=== PATIENT | female | born 1985 | race Caucasian/White ===

== ENCOUNTER 2016-07-06 16:15 | Emergency (ER) | payer MEDICAID, OTHER ==
[2016-07-06 16:38] VITALS: BP 162/91
[2016-07-06] MEDS ORDERED: Alum Hydrox/Mag Hydrox/Simeth 30 ML, Lidocaine 2% 15 ML PO ONE ×2 (16:57)
[2016-07-06] MEDS ORDERED: Sodium Chloride 0.9% 1,000 ML IV SCH (17:00)
--- NOTE | 2016-07-06 17:03 | EDM.PDOC ---
ED HPI GENERAL MEDICAL PROBLEM - General Chief Complaint: Abdominal Pain Stated Complaint: RIGHT SIDE ABDOMINAL PAIN Time Seen by Provider: 07/06/16 16:47 Source of Information: Reports: Patient History Limitations: Reports: No Limitations - History of Present Illness INITIAL COMMENTS - FREE TEXT/NARRATIVE: Patient is a 31-year-old female who presents to ED complaining of right-sided upper quadrant abdominal pain. Patient states this started immediately after eating [employer]. Pain is described as sharp crampy sensation worse with palpation. She does complain of some acid reflux as well. She does have a history of acid reflux and notes no increase with current symptoms. Pain is described as moderate intensity with no radiation. She has felt nauseated and notes no episodes of emesis. Denies any fever/chills, diarrhea, or dysuria. Patient states this morning had a BM described as soft, formed, and no blood present. She denies increased flatulence. She denies any previous history of current symptoms. 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: Other (see below) (none stated) Right Abdominal Pain Score (Numeric/FACES): 7 - Related Data Allergies Allergy/AdvReac Type Severity Reaction Status Date / Time acetaminophen [From Vicodin] Allergy Rash Verified 07/06/16 16:34 fluconazole [From Diflucan] Allergy Hives Verified 07/06/16 16:34 hydrocodone bitartrate Allergy Rash Verified 07/06/16 16:34 [From Vicodin] hydromorphone HCl Allergy Other Verified 07/06/16 16:34 [From Dilaudid] Home Meds: Home Meds Citalopram [Celexa] 20 mg PO DAILY 07/06/16 [History] hydrOXYzine HCl [Atarax] 25 mg PO Q8HR PRN 07/06/16 [History] Past Medical History Psychiatric History: Reports: Anxiety, Depression - Infectious Disease History Infectious Disease History: Reports: Chicken Pox - Past Surgical History GI Surgical History: Reports: Appendectomy Female Surgical History: Reports: Tubal Ligation Social & Family History - Tobacco Use Smoking Status *Q: Current Every Day Smoker Years of Tobacco use: 10 Packs/Tins Daily: 0.1 Second Hand Smoke Exposure: Yes - Caffeine Use Caffeine Use: Reports: Coffee, Energy Drinks, Soda - Recreational Drug Use Recreational Drug Use: No Drug Use in Last 12 Months: No ED ROS GENERAL - Review of Systems Review Of Systems: See Below Constitutional: Reports: Decreased Appetite. Denies: Fever, Chills Respiratory: Denies: Shortness of Breath, Cough, Sputum Cardiovascular: Denies: Chest Pain, Dyspnea on Exertion, Palpitations GI/Abdominal: Reports: Abdominal Pain, Decreased Appetite, Nausea. Denies: Black Stool, Bloody Stool, Constipation, Diarrhea, Hematemesis, Melena, Vomiting : Denies: Dysuria, Flank Pain Musculoskeletal: Denies: Back Pain Neurological: Denies: Dizziness, Headache ED EXAM, GI/ABD - Physical Exam Exam: See Below Exam Limited By: No Limitations General Appearance: Alert, WD/WN, Mild Distress Ears: Hearing Grossly Normal Nose: Normal Inspection Throat/Mouth: Normal Voice, No Airway Compromise Neck: Normal Inspection, Supple Respiratory/Chest: No Respiratory Distress, Lungs Clear, Normal Breath Sounds Cardiovascular: Normal Peripheral Pulses, Regular Rate, Rhythm, No Murmur GI/Abdominal: Normal Bowel Sounds, No Distention, Boswell's Sign. No: McBurney' s Sign (history of history of appendectomy) Back Exam: Normal Inspection. No: CVA Tenderness (L), CVA Tenderness (R) Extremities: Non-Tender, No Pedal Edema Neurological: Alert, Oriented, CN II-XII Intact, Normal Cognition Psychiatric: Normal Affect, Normal Mood Skin Exam: Warm, Dry, Intact, Normal Color Course - Vital Signs Last Recorded V/S: Last Vital Signs Temp 96.7 F 07/06/16 16:36 Pulse 78 07/06/16 16:36 Resp BP 162/91 H 07/06/16 16:36 Pulse Ox 96 07/06/16 16:36 - Orders/Labs/Meds Labs: Laboratory Tests 07/06/16 07/06/16 07/06/16 Range/Units 17:20 17:20 17:20 WBC 11.13 H (3.98-10.04) K/mm3 RBC 4.48 (3.98-5.22) M/mm3 Hgb 13.4 (11.2-15.7) gm/L Hct 38.4 (34.1-44.9) % MCV 85.7 (79.4-94.8) fl MCH 29.9 (25.6-32.2) pg MCHC 34.9 (32.2-35.5) g/dl RDW Std Deviation 37.7 (36.4-46.3) fL Plt Count 389 H (182-369) K/mm3 MPV 9.5 (9.4-12.3) fl Neut % (Auto) 68.7 (34.0-71.1) % Lymph % (Auto) 20.8 (19.3-51.7) % [place] % (Auto) 8.2 (4.7-12.5) % Eos % (Auto) 1.9 (0.7-5.8) Baso % (Auto) 0.2 (0.1-1.2) % Neut # (Auto) 7.65 H (1.56-6.13) K/mm3 Lymph # (Auto) 2.32 (1.18-3.74) K/mm3 [place] # (Auto) 0.91 H (0.24-0.36) K/mm3 Eos # (Auto) 0.21 (0.04-0.36) K/mm3 Baso # (Auto) 0.02 (0.01-0.08) K/mm3 Sodium 143 (136-145) mEq/L Potassium 3.7 (3.5-5.1) mEq/L Chloride 106 (98-107) mEq/L Carbon Dioxide 27 (21-32) mEq/L Anion Gap 13.7 (5-15) BUN 10 (7-18) mg/dL Creatinine 1.0 (0.55-1.02) mg/dL Est Cr Clr Drug Dosing TNP Estimated GFR (MDRD) > 60 (>60) mL/min BUN/Creatinine Ratio 10.0 L (14-18) Glucose 108 H (74-106) mg/dL Calcium 8.9 (8.5-10.1) mg/dL Total Bilirubin 0.2 (0.2-1.0) mg/dL AST 17 (15-37) U/L ALT 32 (14-59) U/L Alkaline Phosphatase 71 (46-116) U/L C-Reactive Protein < 0.2 (<1.0) mg/dL Total Protein 7.4 (6.4-8.2) g/dl Albumin 3.4 (3.4-5.0) g/dl Globulin 4.0 gm/dL Albumin/Globulin Ratio 0.9 L (1-2) Lipase 111 (73-393) U/L HCG, Qual Negative (NEGATIVE) Urine Color (Yellow) Urine Appearance (Clear) Urine pH (5.0-8.0) Ur Specific [place] (1.005-1.030) Urine Protein (Negative) Urine Glucose (UA) (Negative) Urine Ketones (Negative) Urine Occult Blood (Negative) Urine Nitrite (Negative) Urine Bilirubin (Negative) Urine Urobilinogen (0.2-1.0) Ur Leukocyte Esterase (Negative) Urine RBC (0-5) /hpf Urine WBC (0-5) /hpf Ur Epithelial Cells Ur Squamous Epith Cells (0-5) /hpf Urine Bacteria (FEW) /hpf Urine Mucus (FEW) /hpf 07/06/16 Range/Units 18:20 WBC (3.98-10.04) K/mm3 RBC (3.98-5.22) M/mm3 Hgb (11.2-15.7) gm/L Hct (34.1-44.9) % MCV (79.4-94.8) fl MCH (25.6-32.2) pg MCHC (32.2-35.5) g/dl RDW Std Deviation (36.4-46.3) fL Plt Count (182-369) K/mm3 MPV (9.4-12.3) fl Neut % (Auto) (34.0-71.1) % Lymph % (Auto) (19.3-51.7) % [place] % (Auto) (4.7-12.5) % Eos % (Auto) (0.7-5.8) Baso % (Auto) (0.1-1.2) % Neut # (Auto) (1.56-6.13) K/mm3 Lymph # (Auto) (1.18-3.74) K/mm3 [place] # (Auto) (0.24-0.36) K/mm3 Eos # (Auto) (0.04-0.36) K/mm3 Baso # (Auto) (0.01-0.08) K/mm3 Sodium (136-145) mEq/L Potassium (3.5-5.1) mEq/L Chloride (98-107) mEq/L Carbon Dioxide (21-32) mEq/L Anion Gap (5-15) BUN (7-18) mg/dL Creatinine (0.55-1.02) mg/dL Est Cr Clr Drug Dosing Estimated GFR (MDRD) (>60) mL/min BUN/Creatinine Ratio (14-18) Glucose (74-106) mg/dL Calcium (8.5-10.1) mg/dL Total Bilirubin (0.2-1.0) mg/dL AST (15-37) U/L ALT (14-59) U/L Alkaline Phosphatase (46-116) U/L C-Reactive Protein (<1.0) mg/dL Total Protein (6.4-8.2) g/dl Albumin (3.4-5.0) g/dl Globulin gm/dL Albumin/Globulin Ratio (1-2) Lipase (73-393) U/L HCG, Qual (NEGATIVE) Urine Color Light yellow (Yellow) Urine Appearance Clear (Clear) Urine pH 7.0 (5.0-8.0) Ur Specific [place] 1.015 (1.005-1.030) Urine Protein Negative (Negative) Urine Glucose (UA) Negative (Negative) Urine Ketones Negative (Negative) Urine Occult Blood Negative (Negative) Urine Nitrite Negative (Negative) Urine Bilirubin Negative (Negative) Urine Urobilinogen 0.2 (0.2-1.0) Ur Leukocyte Esterase Negative (Negative) Urine RBC Not seen (0-5) /hpf Urine WBC 0-5 (0-5) /hpf Ur Epithelial Cells Not Reportable Ur Squamous Epith Cells 30-40 H (0-5) /hpf Urine Bacteria Rare (FEW) /hpf Urine Mucus Not seen (FEW) /hpf Meds: Medications Discontinued Medications Generic Name Dose Route Start Last Admin Trade Name Freq PRN Reason Stop Dose Admin Al Hydroxide/Mg Hydroxide 30 0 ml 07/06/16 16:57 07/06/16 17:33 ml/ Lidocaine HCl 15 ml PO 07/06/16 16:58 45 ml ONETIME ONE Administration Fentanyl 75 mcg 07/06/16 18:49 07/06/16 18:55 Sublimaze IVPUSH 07/06/16 18:50 75 mcg ONETIME ONE Administration Sodium Chloride 1,000 mls @ 250 mls/hr 07/06/16 17:00 07/06/16 17:32 Normal Saline IV 250 mls/hr ASDIRECTED MAGALI Administration Iopamidol 125 ml 07/06/16 20:57 07/06/16 21:19 Isovue-300 (61%) IVPUSH 07/06/16 20:58 125 ml ONETIME ONE Administration Ondansetron HCl 4 mg 07/06/16 19:10 07/06/16 19:13 Zofran IVPUSH 07/06/16 19:11 4 mg ONETIME ONE Administration Sodium Chloride 10 ml 07/06/16 16:57 07/06/16 21:19 Saline Flush FLUSH 10 ml ASDIRECTED PRN Administration Keep Vein Open Sodium Chloride 10 ml 07/06/16 20:57 Saline Flush FLUSH 07/06/16 20:58 ONETIME ONE - Re-Assessments/Exams Free Text/Narrative Re-Assessment/Exam: Ordered a peripheral IV with normal saline to 250 mL per hour, Zofran 4 mg IVP , and a GI cocktail. Initial labs and studies include CBC, chem 14, CRP, lipase , UA, and ECG. Labs reviewed: White blood cell count 11.13, chem 14 within normal limits, lipase 111, hCG negative, UA negative for infection. CRP WNL. 07/06/16 18:50 Patient is having excruciating pain to the RUQ 10/10. Ordered fentanyl 75mcq/kg. Patient is allergic to hydromorphone subsequently morphine. Patient vomiting ordered zofran 4mg IVP. 07/06/16 19:03 Ordered limited abdominal ultrasound. 07/06/16 20:39 Abdominal ultrasound impression: Slightly fatty observation within the liver. No additional abnormality identified on right upper quadrant abdominal ultrasound exam. Ordered CT abdomen and pelvis with IV contrast only. CT abdomen/pelvis: No acute abnormalities noted. Will discharge patient home with instructions. 07/06/16 22:28 Patient states she cannot take T3, hydrocodone, and hydromorphone. Patient has a allergy and develops a rash. She wants to try percocet tabs. She has no known allergy to oxycodone. Departure - Departure Time of Disposition: 22:11 Disposition: Home, Self-Care 01 Condition: good Clinical Impression: RUQ abdominal pain, Nausea, Biliary colic - Discharge Information Instructions: Abdominal Pain, Adult, [id number], Nausea and Vomiting, Adult, [id number] Referrals: Chiquita Escobedo, [employer] SALESPERSON [Primary Care Provider] - Forms: ED Department Discharge Additional Instructions: Outpatient HIDA Scan has been ordered. They will call with appt. time. For nausea take zofran 4mg ODT SL every 6 hours as needed. For pain take tylenol 650mg every 6 hours. Refrain from ibuprofen. Take prilosec 20mg every a.m. 1/2 hour prior to eating or drinking in the a.m. Can also utilize maalox prn following manufactures instructions for dosing. Stick with a liquid diet for the next 24 hrs, low residue for 48 hours, and advance as tolerated to normal diet. Stay away from fatty foods. Followup with PCP Tuesday for reevaluation and results HIDA scan. Return to the E.D. for any new or worsening symptoms. Take the percocet tabs as directed.No driving this evening nor while taking narcotics. If you develop rash take benadryl 50mg PO. If you develop anaphylatic reaction call 911 to be transported to E.D.
[2016-07-06] MEDS: Sodium Chloride 0.9% 10 ML Syringe FLUSH PRN ×2 (17:20→21:19)
[2016-07-06] MEDS ORDERED: fentaNYL 100 MCG/2 ML SDV IVPUSH ONE (18:49)
[2016-07-06] MEDS ORDERED: Ondansetron 4 MG/2 ML SDV IVPUSH ONE (19:10)
--- NOTE | 2016-07-06 20:27 | US ---
Limited abdominal ultrasound: Multiple real-time images were obtained of the upper right abdomen. Comparison: Previous right upper quadrant abdominal ultrasound of 10/12/14 is available. Technologist's note: Limited exam due to bowel gas and labored breathing Liver is slightly echogenic. Minimal fatty infiltration is possible. No focal abnormality is identified within the liver. Gallbladder shows no gallstones. No gallbladder wall thickening or biliary duct dilatation is seen. Right kidney shows no hydronephrosis or mass. Right kidney has a length of 10.9 cm. Pancreas is mostly obscured from bowel gas. Visualized portions of the pancreas are within normal limits. Inferior vena cava is patent. Impression: 1. Slight fatty infiltration within the liver. 2. No additional abnormality identified on right upper quadrant abdominal ultrasound exam. Diagnostic code #2
[2016-07-06] MEDS ORDERED: Sodium Chloride 0.9% 10 ML Syringe FLUSH ONE (20:57)
[2016-07-06] MEDS ORDERED: Iopamidol 612 MG/ML 150 ML Bottle IVPUSH ONE (20:57)
--- NOTE | 2016-07-07 11:29 | CT ---
CT abdomen and pelvis Technique: Multiple axial sections were obtained from above the dome of the diaphragm inferiorly through the pubic symphysis. Intravenous contrast was utilized. No oral contrast was given which limits evaluation of bowel and processes around the bowel. Comparison: Previous right upper quadrant abdominal ultrasound performed on the same day. Previous CT abdomen and pelvis exam of 10/14/14 is also available. Findings: Visualized lung bases show nothing acute. Liver shows no focal parenchymal abnormality. Spleen appears within normal limits. Soft tissue nodule medial to the spleen is compatible with accessory splenic tissue. Cyst noted within the right kidney which is stable from prior exam measuring about 1.2 cm in size. Kidneys are otherwise unremarkable. Adrenal glands show no nodule. Pancreas is within normal limits. Aorta shows no aneurysmal dilatation. No retroperitoneal adenopathy or mesenteric abnormalities are seen. Appendix is not definitely visualized. No bowel dilatation is seen. No pelvic mass or adenopathy is seen. No free fluid or inflammatory change is seen. Delayed images show contrast within the bladder. Bone window settings were reviewed which appear within normal limits for the patient's age. Impression: 1. Incidental findings. Nothing acute is identified on CT study of the abdomen and pelvis. Diagnostic code #2 Agree with preliminary report issued by [facility] ([facility] report dictated on 07/06/16, 10:48 PM Central Time)
== END 2016-07-06 22:30 | disposition home or self-care (01) ==
LOC: JD.ED 16:15
DX: K80.50 Calculus of bile duct without cholangitis or cholecystitis without obstruction (principal); R10.11 Right upper quadrant pain; R11.0 Nausea; F32.9 Major depressive disorder, single episode, unspecified; F17.210 Nicotine dependence, cigarettes, uncomplicated; Z90.49 Acquired absence of other specified parts of digestive tract; Z88.5 Allergy status to narcotic agent; Z88.8 Allergy status to other drugs, medicaments and biological substances; Z88.6 Allergy status to analgesic agent; Z79.899 Other long term (current) drug therapy; Z98.51 Tubal ligation status
CPT/HCPCS: 36415; 74177; 76705; 80053; 81001; 83690; 84703; 85025; 86140; 96361; 96374; 96375; 99284; A9270; J2405; J3010; J7040; J7050; Q9967

== ENCOUNTER 2016-08-26 03:10 | Emergency (ER) | payer SELFPAY ==
[2016-08-26 03:23] VITALS: BP 147/101
[2016-08-26] MEDS ORDERED: Benztropine 1 MG Tab PO STA (03:48)
[2016-08-26] MEDS ORDERED: Sodium Chloride 0.9% 1,000 ML IV ONE (03:48)
[2016-08-26] MEDS ORDERED: Haloperidol Lactate 5 MG/ML SDV IM ONE (03:48)
[2016-08-26] MEDS ORDERED: Ondansetron 4 MG/2 ML SDV IVPUSH ONE (03:48)
--- NOTE | 2016-08-26 04:21 | EDM.PDOC ---
ED HPI GENERAL MEDICAL PROBLEM - General Chief Complaint: Headache Stated Complaint: BAD HEADACHE Time Seen by Provider: 08/26/16 03:32 Source of Information: Reports: Patient, RN Notes Reviewed, Significant Other ( Fiance) History Limitations: Reports: No Limitations - History of Present Illness INITIAL COMMENTS - FREE TEXT/NARRATIVE: The patient states that she developed a headache felt on the top right of her head around 18:00 last night. It is stabbing in character, made worse when she coughs. She states that she has had nausea and vomiting. She states that she has had photophobia, but denies phonophobia. No visual changes. No neurologic symptoms, such as tingling, numbness, or weakness. She states that she has "migraine" headaches, that she describes simply as bad headaches, about every other day, but that she has not had a headache like this in the past. She has not been evaluated by a Neurologist, and is not prescribed either migraine prophylactic or migraine abortive medications. She states that she took [id number] "headache pain reliever" and Motrin, without relief. She states that she had a head injury as a teenager and was told that she would have migraines going forward. The last imaging study of the patient's brain was a CT of the head on 08/31/2014 , which was normal. The patient's PCP is Aleah Escobedo. Headache Pain Score (Numeric/FACES): 10 - Related Data Allergies Allergy/AdvReac Type Severity Reaction Status Date / Time acetaminophen [From Vicodin] Allergy Rash Verified 08/26/16 03:24 fluconazole [From Diflucan] Allergy Hives Verified 08/26/16 03:24 hydrocodone bitartrate Allergy Rash Verified 08/26/16 03:24 [From Vicodin] hydromorphone HCl Allergy Other Verified 08/26/16 03:24 [From Dilaudid] Home Meds: Home Meds Citalopram [Celexa] 20 mg PO DAILY 07/06/16 [History] hydrOXYzine HCl [Atarax] 25 mg PO Q8HR PRN 07/06/16 [History] Past Medical History HEENT History: Reports: Allergic Rhinitis Respiratory History: Reports: Asthma Genitourinary History: Reports: Renal Calculus DEVIL DOG History: Reports: Neurological History: Reports: Brain Injury, Migraines Psychiatric History: Reports: Anxiety, Depression - Infectious Disease History Infectious Disease History: Reports: Chicken Pox - Past Surgical History GI Surgical History: Reports: Appendectomy Female Surgical History: Reports: Tubal Ligation Neurological Surgical History: Reports: Other (See Below) (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?) Social & Family History - Tobacco Use Smoking Status *Q: Former Smoker Years of Tobacco use: 10 Packs/Tins Daily: 0.1 Second Hand Smoke Exposure: Yes - Caffeine Use Caffeine Use: Reports: None - Alcohol Use Alcohol Use History: No - Recreational Drug Use Recreational Drug Use: No - Living Situation & Occupation Living situation: Reports: Single, with Significant Other (Fiance) Occupation: Unemployed ED ROS GENERAL - Review of Systems Review Of Systems: See Below Constitutional: Reports: Fever (subjective) HEENT: Reports: No Symptoms Respiratory: Reports: Cough (x 1 week) Cardiovascular: Reports: No Symptoms Endocrine: Reports: No Symptoms GI/Abdominal: Reports: No Symptoms : Reports: No Symptoms Musculoskeletal: Reports: No Symptoms Skin: Reports: No Symptoms Neurological: Reports: No Symptoms Psychiatric: Reports: No Symptoms Hematologic/Lymphatic: Reports: No Symptoms Immunologic: Reports: No Symptoms - Physical Exam Exam: See Below Exam Limited By: No Limitations General Appearance: Alert, WD/WN, Mild Distress (Appears uncomfortable) Eye Exam: Bilateral Eye: EOMI, Normal Inspection, PERRL Ears: Normal External Exam, Hearing Grossly Normal Nose: Normal Inspection, No Blood Throat/Mouth: Normal Inspection, Normal Lips, Normal Voice, No Airway Compromise Head Exam: Atraumatic, Normocephalic Neck: Normal Inspection, Full Range of Motion Respiratory/Chest: No Respiratory Distress, Lungs Clear, Normal Breath Sounds, No Accessory Muscle Use Cardiovascular: Normal Peripheral Pulses, Regular Rate, Rhythm, No Gallop, No JVD, No Murmur, No Rub GI/Abdominal: Normal Bowel Sounds, Soft, No Organomegaly, No Distention, No Abnormal Bruit, No Mass, Other (Obese) (Female) Exam: Deferred Rectal (Female) Exam: Deferred Neuro Exam (Abbreviated): Alert, Oriented, CN II-XII Intact, Normal Cognition, No Motor/Sensory Deficits Back Exam: Normal Inspection, Full Range of Motion, NT Extremities: Normal Inspection, Normal Range of Motion, No Pedal Edema, Normal Capillary Refill Psychiatric: Normal Affect Skin Exam: Warm, Dry, Intact, Normal Color, No Rash Course - Vital Signs Last Recorded V/S: Last Vital Signs Temp 37.2 C 08/26/16 03:20 Pulse 110 H 08/26/16 03:20 Resp 20 08/26/16 03:20 BP 147/101 H 08/26/16 03:20 Pulse Ox 98 08/26/16 03:20 - Orders/Labs/Meds Orders: Active Orders 24 hr Category Date Time Status Head wo Cont [CT] Stat Exams 08/26/16 03:48 Taken Meds: Medications Discontinued Medications Generic Name Dose Route Start Last Admin Trade Name Clement PRN Reason Stop Dose Admin Benztropine Mesylate 1 mg 08/26/16 03:48 08/26/16 04:09 Cogentin PO 08/26/16 03:49 1 mg ONETIME STA Administration Haloperidol Lactate 5 mg 08/26/16 03:48 08/26/16 04:02 Haldol IM 08/26/16 03:49 5 mg ONETIME ONE Administration Sodium Chloride 1,000 mls @ 999 mls/hr 08/26/16 03:48 08/26/16 04:00 Normal Saline IV 08/26/16 04:48 999 mls/hr ONETIME ONE Administration Ondansetron HCl 4 mg 08/26/16 03:48 08/26/16 04:00 Zofran IVPUSH 08/26/16 03:49 4 mg ONETIME ONE Administration - Re-Assessments/Exams Free Text/Narrative Re-Assessment/Exam: 08/26/16 04:55 CT of the head without contrast is read by [facility] as "No acute findings." 08/26/16 04:58 The patient states that her headache, following Haldol, is really no better. This indicates that the patient's headache is not migrainous in etiology. Given her description, it is most likely a tension headache. I will treat with Norflex and Fioricet, and discharge the patient home. Departure - Departure Time of Disposition: 04:59 Disposition: Home, Self-Care 01 Condition: Fair Clinical Impression: Tension type headache - Discharge Information Referrals: Chiquita Escobedo, OUTBOARD TECHNICIAN [Primary Care Provider] - Forms: ED Department Discharge Additional Instructions: You were seen in the emergency room for a headache felt on the top right of her head. Workup in the ER included a CT scan of her head, which was normal. You were treated for a migraine with IM Haldol, without significant relief. This indicates that your headache was not a migraine. Based on your description, your headache is MOST LIKELY a tension-type headache. You have been treated with Norflex, a muscle relaxant, and the tension headache medicine Fioricet. We recommend you get plenty of rest in a dark, quiet place. Stay adequately hydrated. Follow-up with your PCP, Aleah Escobedo, as needed. If any other problems, please do not hesitate to return to the ER. - My Orders Last 24 Hours: My Active Orders 08/26/16 03:48 Head wo Cont [CT] Stat - Assessment/Plan Last 24 Hours: My Active Orders 08/26/16 03:48 Head wo Cont [CT] Stat
[2016-08-26] MEDS ORDERED: Orphenadrine 100 MG Tab.ER PO STA (04:59)
[2016-08-26] MEDS ORDERED: Acetaminophen/Butalbital/Caffeine 325-50-40 MG Tab PO ONE (05:00)
--- NOTE | 2016-08-29 13:45 | CT ---
Previous report shows no diagnostic code which follows: Diagnostic code #1 --- Addendum1 above dictated on [09/03/2016 18:04] by [Robert Sanz Hilton J.] --- --- Addendum1 above signed on [09/03/2016 18:06] by [Robert Sazn Hilton J.] --- --- Original report below dictated on [08/29/2016 13:20] by [Robert Sanz Hilton J.] --- --- Original report below signed on [08/29/2016 13:42] by [Robert Sanz Hilton J.] --- Head CT Technique: Multiple axial sections through the brain were obtained. Intravenous contrast was not utilized. Comparison: Previous head CT of 08/31/14 is available. Findings: Ventricles along with basal cisterns and sulci over the convexities are within normal limits for the patient's age. No abnormal parenchymal densities are seen. No evidence of intracranial hemorrhage. No midline shift or mass effect is seen. Bone window settings were reviewed which show no discrete calvarial abnormality. Visualized sinuses are clear. Impression: 1. No acute intracranial abnormality is seen. No significant interval change is seen from prior head CT. I agree with preliminary report issued by [facility] ([facility] report finalized on 08/26/16, 5:39 AM Central Time) --- Addendum1 signed ---
== END 2016-08-26 05:27 | disposition home or self-care (01) ==
LOC: JD.ED 03:10
DX: G44.209 Tension-type headache, unspecified, not intractable (principal); J45.909 Unspecified asthma, uncomplicated; F41.9 Anxiety disorder, unspecified; F32.9 Major depressive disorder, single episode, unspecified; Z90.49 Acquired absence of other specified parts of digestive tract; Z98.51 Tubal ligation status; Z87.442 Personal history of urinary calculi; Z79.899 Other long term (current) drug therapy; Z88.5 Allergy status to narcotic agent; Z88.8 Allergy status to other drugs, medicaments and biological substances; Z87.891 Personal history of nicotine dependence
CPT/HCPCS: 70450; 96361; 96372; 96374; 99284; A9270; J1630; J2405; J7040

== ENCOUNTER 2017-08-03 09:04 | Emergency (ER) | payer SELFPAY ==
[2017-08-03] MEDS ORDERED: Ondansetron 4 MG/2 ML SDV IVPUSH ONE (09:47)
[2017-08-03] MEDS ORDERED: Ketorolac 15 MG/ML SDV IVPUSH ONE (09:50)
[2017-08-03] MEDS ORDERED: Sodium Chloride 0.9% 1,000 ML IV SCH ×2 (10:00→11:15)
--- NOTE | 2017-08-03 10:28 | EDM.PDOC ---
<Digna Pinedo - Last Filed: 08/03/17 10:33> ED HPI GENERAL MEDICAL PROBLEM - General Chief Complaint: Abdominal Pain Stated Complaint: R SIDE ABD PAIN Time Seen by Provider: 08/03/17 09:40 Source of Information: Reports: Patient History Limitations: Reports: No Limitations - History of Present Illness INITIAL COMMENTS - FREE TEXT/NARRATIVE: 32 yo female presents for RUQ pain with associated nausea, vomiting and diarrhea for the past 6 hours. She reports approximately 0400 hours she woke up with the pain and nausea. She has vomited twice and the pain has not improved. She reports a sharp, stabbing pain in the upper right quadrant that has been there constantly but has been waxing and waning. She said she ate burgers at a friend's home for dinner but no one else became ill. She reports feeling well when she went to bed. She has not had any blood in the stool and denies abdominal cramps. LMP approx 1 month ago, h/o tubal ligation. She has a history of biliary colic. She has had an appendectomy. She believes she has had an upset stomach recently secondary to increased stress for the past few weeks, but the pain today is very different. She denies fever, chills, night sweats. 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: NSAIDS Right Upper Abdominal Pain Score (Numeric/FACES): 7 - Related Data Allergies Allergy/AdvReac Type Severity Reaction Status Date / Time acetaminophen [From Vicodin] Allergy Rash Verified 08/03/17 09:22 fluconazole [From Diflucan] Allergy Hives Verified 08/03/17 09:22 hydrocodone bitartrate Allergy Rash Verified 08/03/17 09:22 [From Vicodin] hydromorphone HCl Allergy Other Verified 08/03/17 09:22 [From Dilaudid] Home Meds: Home Meds Citalopram [Celexa] 20 mg PO DAILY 07/06/16 [History] hydrOXYzine HCl [Atarax] 25 mg PO Q8HR PRN 07/06/16 [History] Ondansetron [Zofran ODT] 4 mg PO Q6H PRN #7 tab.dis 08/03/17 [Rx] Past Medical History HEENT History: Reports: Allergic Rhinitis Respiratory History: Reports: Asthma Genitourinary History: Reports: Renal Calculus 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: Neurological History: Reports: Brain Injury, Migraines Psychiatric History: Reports: Anxiety, Depression - Infectious Disease History Infectious Disease History: Reports: Chicken Pox - Past Surgical History GI Surgical History: Reports: Appendectomy Female Surgical History: Reports: Tubal Ligation Neurological Surgical History: Reports: Other (See Below) Social & Family History - Family History Family Medical History: Noncontributory - Tobacco Use Smoking Status *Q: Current Every Day Smoker Years of Tobacco use: 3 Packs/Tins Daily: 0.4 - Caffeine Use Caffeine Use: Reports: Soda Other Caffeine Use: daily - Recreational Drug Use Recreational Drug Use: No - Living Situation & Occupation Living situation: Reports: Single, with Significant Other (Fiance) Occupation: Unemployed ED ROS GENERAL - Review of Systems Review Of Systems: See Below Constitutional: Reports: No Symptoms. Denies: Fever, Chills, Malaise, Weakness HEENT: Reports: No Symptoms Respiratory: Reports: No Symptoms. Denies: Shortness of Breath, Wheezing, Cough Cardiovascular: Reports: No Symptoms. Denies: Chest Pain, Edema Endocrine: Reports: No Symptoms GI/Abdominal: Reports: Abdominal Pain, Diarrhea (watery), Nausea, Vomiting. Denies: Bloody Stool, Constipation : Reports: No Symptoms. Denies: Dysuria, Frequency, Urgency Musculoskeletal: Reports: Back Pain (mild low back, bilaterally) Skin: Reports: No Symptoms Neurological: Reports: No Symptoms, Headache, Tingling. Denies: Dizziness, Numbness Psychiatric: Reports: No Symptoms Hematologic/Lymphatic: Reports: No Symptoms Immunologic: Reports: No Symptoms ED EXAM, GI/ABD - Physical Exam Exam: See Below Exam Limited By: No Limitations General Appearance: Alert, WD/WN, Mild Distress (appears uncomfortable) Ears: Hearing Grossly Normal Throat/Mouth: Normal Inspection, Normal Lips Head: Atraumatic, Normocephalic Neck: Normal Inspection, Supple, Non-Tender, Full Range of Motion. No: Lymphadenopathy (L), Lymphadenopathy (R) Respiratory/Chest: No Respiratory Distress, Lungs Clear, Normal Breath Sounds, No Accessory Muscle Use Cardiovascular: Normal Peripheral Pulses, Regular Rate, Rhythm, No Edema, No Murmur, No Rub GI/Abdominal Exam: Normal Bowel Sounds, Soft, No Distention, Tender (RUQ and suprapubic region), Other (+ murphys sign). No: Rebound Back Exam: Normal Inspection, Paraspinal Tenderness (mild bilaterally). No: CVA Tenderness (L), CVA Tenderness (R) Extremities: Normal Inspection, Normal Range of Motion Neurological: Alert, Oriented, Normal Cognition, No Motor/Sensory Deficits Psychiatric: Normal Affect, Normal Mood Skin Exam: Warm, Dry, Intact, Normal Color, No Rash Course - Vital Signs Last Recorded V/S: Last Vital Signs Temp 98.5 F 08/03/17 15:03 Pulse 79 08/03/17 15:03 Resp 18 08/03/17 15:03 BP 126/88 08/03/17 15:03 Pulse Ox 98 08/03/17 15:03 - Orders/Labs/Meds Orders: Active Orders 24 hr Category Date Time Status Abdomen 2V AP Flat Upright [CR] Stat Exams 08/03/17 14:12 Taken Sodium Chloride 0.9% [Normal Saline] 1,000 ml Med 08/03/17 11:15 Active IV ASDIRECTED Sodium Chloride 0.9% [Normal Saline] 1,000 ml Med 08/03/17 10:00 Active IV ONETIME Medication Orders Sodium Chloride (Normal Saline) 1,000 mls @ 999 mls/hr IV ONETIME MAGALI Last Admin: 08/03/17 09:54 Dose: 999 mls/hr Sodium Chloride (Normal Saline) 1,000 mls @ 150 mls/hr IV ASDIRECTED MAGALI Last Admin: 08/03/17 11:14 Dose: 150 mls/hr Labs: Laboratory Tests 08/03/17 08/03/17 08/03/17 Range/Units 09:50 09:50 09:50 WBC 12.92 H (3.98-10.04) K/mm3 RBC 4.43 (3.98-5.22) M/mm3 Hgb 13.2 (11.2-15.7) gm/L Hct 37.7 (34.1-44.9) % MCV 85.1 (79.4-94.8) fl MCH 29.8 (25.6-32.2) pg MCHC 35.0 (32.2-35.5) g/dl RDW Std Deviation 38.5 (36.4-46.3) fL Plt Count 332 (182-369) K/mm3 MPV 9.7 (9.4-12.3) fl Neutrophils % (Manual) 90 H (40-60) % Band Neutrophils % 5 (0-10) % Lymphocytes % (Manual) 4 L (20-40) % Atypical Lymphs % 0 % Monocytes % (Manual) 1 L (2-10) % Eosinophils % (Manual) 0 L (0.7-5.8) % Basophils % (Manual) 0 L (0.1-1.2) Differential Comment See note Platelet Estimate Adequate RBC Morph Comment Normal Sodium 141 (136-145) mEq/L Potassium 3.1 L (3.5-5.1) mEq/L Chloride 105 (98-107) mEq/L Carbon Dioxide 27 (21-32) mEq/L Anion Gap 12.1 (5-15) BUN 18 (7-18) mg/dL Creatinine 0.8 (0.55-1.02) mg/dL Est Cr Clr Drug Dosing 77.59 mL/min Estimated GFR (MDRD) > 60 (>60) mL/min BUN/Creatinine Ratio 22.5 H (14-18) Glucose 111 H (74-106) mg/dL Calcium 8.2 L (8.5-10.1) mg/dL Total Bilirubin 0.7 (0.2-1.0) mg/dL AST 16 (15-37) U/L ALT 29 (14-59) U/L Alkaline Phosphatase 71 (46-116) U/L Total Protein 7.0 (6.4-8.2) g/dl Albumin 3.4 (3.4-5.0) g/dl Globulin 3.6 gm/dL Albumin/Globulin Ratio 0.9 L (1-2) Lipase 124 (73-393) U/L HCG, Qual Negative (NEGATIVE) Meds: Medications Generic Name Dose Route Start Last Admin Trade Name Freq PRN Reason Stop Dose Admin Sodium Chloride 1,000 mls @ 999 mls/hr 08/03/17 10:00 08/03/17 09:54 Normal Saline IV 999 mls/hr ONETIME MAGALI Administration Sodium Chloride 1,000 mls @ 150 mls/hr 08/03/17 11:15 08/03/17 11:14 Normal Saline IV 150 mls/hr ASDIRECTED MAGALI Administration Discontinued Medications Generic Name Dose Route Start Last Admin Trade Name Freq PRN Reason Stop Dose Admin Potassium Chloride 10 meq/ 100 mls @ 50 mls/hr 08/03/17 11:08 08/03/17 11:14 Premix IV 08/03/17 13:07 50 mls/hr ASDIRECTED ONE Administration Ketorolac Tromethamine 15 mg 08/03/17 09:50 08/03/17 09:58 Toradol IVPUSH 08/03/17 09:51 15 mg ONETIME ONE Administration Metoclopramide HCl 5 mg 08/03/17 14:11 08/03/17 14:24 Reglan IVPUSH 08/03/17 14:12 5 mg ONETIME ONE Administration Morphine Sulfate 2 mg 08/03/17 13:43 08/03/17 13:53 Morphine IVPUSH 08/03/17 13:44 2 mg ONETIME ONE Administration Morphine Sulfate 2 mg 08/03/17 14:12 08/03/17 14:25 Morphine IVPUSH 08/03/17 14:13 2 mg ONETIME ONE Administration Ondansetron HCl 4 mg 08/03/17 09:47 08/03/17 09:55 Zofran IVPUSH 08/03/17 09:48 4 mg ONETIME ONE Administration Departure - Departure Disposition: Home, Self-Care 01 Clinical Impression: Hypokalemia Diarrhea Qualifiers: Diarrhea type: unspecified type Qualified Code(s): R19.7 - Diarrhea, unspecified Vomiting Qualifiers: Vomiting type: unspecified Vomiting Intractability: non-intractable Nausea presence: with nausea Qualified Code(s): R11.2 - Nausea with vomiting, unspecified Abdominal pain Qualifiers: Abdominal location: right upper quadrant Qualified Code(s): R10.11 - Right upper quadrant pain - Discharge Information Prescriptions: Ondansetron [Zofran ODT] 4 mg PO Q6H PRN #7 tab.dis PRN Reason: Nausea/Vomiting Referrals: Chiquita Escobedo, MOBILITY ARCHITECT MANAGER [Primary Care Provider] - Forms: ED Department Discharge Additional Instructions: Clear liquids until noon tomorrow, then very careful bland diet as tolerated, Zofran if needed for any further nausea or vomiting., Follow-up clinic if not much better within 1-2 days as expected, return to ED as needed if symptoms worsening in any way. - My Orders Last 24 Hours: My Active Orders 08/03/17 10:00 Sodium Chloride 0.9% [Normal Saline] 1,000 ml IV ONETIME 08/03/17 11:15 Sodium Chloride 0.9% [Normal Saline] 1,000 ml IV ASDIRECTED 08/03/17 14:12 Abdomen 2V AP Flat Upright [CR] Stat - Assessment/Plan Last 24 Hours: My Active Orders 08/03/17 10:00 Sodium Chloride 0.9% [Normal Saline] 1,000 ml IV ONETIME 08/03/17 11:15 Sodium Chloride 0.9% [Normal Saline] 1,000 ml IV ASDIRECTED 08/03/17 14:12 Abdomen 2V AP Flat Upright [CR] Stat <Tino Camarillo L - Last Filed: 08/03/17 15:10> Course - Re-Assessments/Exams Free Text/Narrative Re-Assessment/Exam: 08/03/17 14:33. Initial exam was done by Kellie PEREZ student. I agree with her hx and exam as documented. I have also examined patient. Her potassium did come back low at 3.1 so we have given 10 mEq slowly over 2 hours. Then on reevaluation her pain was getting more severe so we have given morphine 2 mg IV 2 after having given Toradol and Zofran initially along with IV fluid. Flat and upright abdomen also has been done with no acute abnormality. She is now feeling better. Discharge instructions as documented. Departure - Departure Time of Disposition: 15:07 Condition: Fair
[2017-08-03] MEDS ORDERED: Potassium Chloride 10 MEQ in Premix Bag 1 BAG IV ONE (11:08)
[2017-08-03] MEDS ORDERED: Morphine 2 MG/ML Syringe IVPUSH ONE ×2 (13:43→14:12)
[2017-08-03] MEDS ORDERED: Metoclopramide 10 MG/2 ML SDV IVPUSH ONE (14:11)
[2017-08-03 15:04] VITALS: BP 126/88
--- NOTE | 2017-08-04 09:18 | CR ---
Abdomen: Supine and upright views of the abdomen were obtained. Comparison: Prior abdominal x-ray of 10/12/14. Scattered gas within small bowel and colon is seen. Findings are felt to be within normal limits. No bowel dilatation is seen. No abnormal calcifications or soft tissue abnormality is seen. No free air is seen. Minimal scoliosis is noted within the spine. Impression: 1. Nothing acute is seen on two-view abdominal x-ray. Diagnostic code #2
== END 2017-08-03 15:13 | disposition home or self-care (01) ==
LOC: JD.ED 09:04
DX: E87.6 Hypokalemia (principal); R10.11 Right upper quadrant pain; R11.2 Nausea with vomiting, unspecified; R19.7 Diarrhea, unspecified; F17.210 Nicotine dependence, cigarettes, uncomplicated; Z88.6 Allergy status to analgesic agent; Z88.5 Allergy status to narcotic agent; Z79.899 Other long term (current) drug therapy
CPT/HCPCS: 36415; 74019; 80053; 83690; 84703; 85007; 85027; 96361; 96365; 96366; 96375; 96376; 99284; J2270; J2405; J2765; J3480; J7040; J1885

== ENCOUNTER 2018-07-12 21:19 | Emergency (ER) | payer SELFPAY ==
[2018-07-12 21:41] VITALS: BP 150/96
--- NOTE | 2018-07-12 22:50 | EDM.PDOC ---
ED HPI GENERAL MEDICAL PROBLEM - General Chief Complaint: Lower Extremity Injury/Pain Stated Complaint: FOOT PAIN Time Seen by Provider: 07/12/18 21:39 Source of Information: Reports: Patient History Limitations: Reports: No Limitations - History of Present Illness INITIAL COMMENTS - FREE TEXT/NARRATIVE: The patient presents with right foot pain. This started 2 days ago. She denies any injury. She is on her feet all day at work. She did take pictures of the bottom of her foot and there was some swelling and redness but there is none of that now. She has never had pain like this before. 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 Right Foot Pain Score (Numeric/FACES): 7 - Related Data Allergies Allergy/AdvReac Type Severity Reaction Status Date / Time acetaminophen [From Vicodin] Allergy Rash Verified 08/03/17 09:22 fluconazole [From Diflucan] Allergy Hives Verified 08/03/17 09:22 hydrocodone bitartrate Allergy Rash Verified 08/03/17 09:22 [From Vicodin] hydromorphone HCl Allergy Other Verified 08/03/17 09:22 [From Dilaudid] Past Medical History HEENT History: Reports: Allergic Rhinitis Respiratory History: Reports: Asthma Genitourinary History: Reports: Renal Calculus 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: Neurological History: Reports: Brain Injury, Migraines Psychiatric History: Reports: Anxiety, Depression - Infectious Disease History Infectious Disease History: Reports: Chicken Pox - Past Surgical History GI Surgical History: Reports: Appendectomy Female Surgical History: Reports: Tubal Ligation Neurological Surgical History: Reports: Other (See Below) Social & Family History - Family History Family Medical History: Noncontributory - Tobacco Use Smoking Status *Q: Never Smoker - Caffeine Use Caffeine Use: Reports: Soda Other Caffeine Use: daily - Recreational Drug Use Recreational Drug Use: No - Living Situation & Occupation Living situation: Reports: Single, with Significant Other (Fiance) Occupation: Unemployed Review of Systems - Review of Systems Review Of Systems: See Below Constitutional: Reports: No Symptoms Eyes: Reports: No Symptoms Ears: Reports: No Symptoms Nose: Reports: No Symptoms Mouth/Throat: Reports: No Symptoms Respiratory: Reports: No Symptoms Cardiovascular: Reports: No Symptoms GI/Abdominal: Reports: No Symptoms Genitourinary: Reports: No Symptoms Musculoskeletal: Reports: Other (Pain to the right foot) ED EXAM, GENERAL - Physical Exam Exam: See Below Exam Limited By: No Limitations General Appearance: Alert, No Apparent Distress Ears: Normal External Exam Nose: Normal Inspection Head: Atraumatic, Normocephalic Neck: Normal Inspection Respiratory/Chest: No Respiratory Distress Extremities: Other (Pain upon palpation to the ball of her right foot. No edema noted. Good sensation and capillary refill distally.) Course - Vital Signs Last Recorded V/S: Last Vital Signs Temp 98.7 F 07/12/18 21:36 Pulse 66 07/12/18 21:36 Resp 16 07/12/18 21:36 BP 150/96 H 07/12/18 21:36 Pulse Ox 96 07/12/18 21:36 - Orders/Labs/Meds Orders: Active Orders 24 hr Category Date Time Status Foot Comp Min 3V Rt [CR] Stat Exams 07/12/18 21:53 Taken - Re-Assessments/Exams Free Text/Narrative Re-Assessment/Exam: 07/12/18 22:49 I did an x-ray and I do not see any abnormality. I will get her in a walking boot and something for pain. Departure - Departure Time of Disposition: 22:50 Disposition: Home, Self-Care 01 Condition: Good Clinical Impression: Right foot pain - Discharge Information *PRESCRIPTION DRUG MONITORING PROGRAM REVIEWED*: Not Applicable *COPY OF PRESCRIPTION DRUG MONITORING REPORT IN PATIENT ELAYNE: Not Applicable Referrals: PCP,None [Primary Care Provider] - Dino Royal II, DPM [Physician] - 1 Week Additional Instructions: Wear the walking boot for the next week. Take motrin every 6 hours as needed for pain. Elevate your foot as much as you can for the next 2 days. Ice for 15 minutes 3 times per day for 2 days. Take the ultram as needed for pain if the motrin does not work. Follow up with Dr Royal in 1 week. Please return if you are worse. - My Orders Last 24 Hours: My Active Orders 07/12/18 21:53 Foot Comp Min 3V Rt [CR] Stat - Assessment/Plan Last 24 Hours: My Active Orders 07/12/18 21:53 Foot Comp Min 3V Rt [CR] Stat
--- NOTE | 2018-07-13 08:18 | CR ---
Right foot: Four views of the right foot were obtained. Comparison: No prior foot exam. Joint spaces are preserved. No fracture, dislocation or other bony abnormality is seen. Impression: 1. No abnormality is appreciated on right foot exam. Diagnostic code #1
== END 2018-07-12 23:14 | disposition home or self-care (01) ==
LOC: JD.ED 21:19
DX: M79.671 Pain in right foot (principal); Z88.5 Allergy status to narcotic agent; Z88.6 Allergy status to analgesic agent; Z88.8 Allergy status to other drugs, medicaments and biological substances
CPT/HCPCS: 73630-26-RT; 73630-RT; 99282; 99283-25

== ENCOUNTER 2018-07-24 12:48 | Emergency (ER) | payer SELFPAY ==
[2018-07-24 12:59] VITALS: BP 157/100
[2018-07-24] MEDS ORDERED: Sodium Chloride 0.9% 10 ML Syringe FLUSH PRN (13:37)
[2018-07-24] MEDS ORDERED: Ketorolac 30 MG/ML SDV IVPUSH ONE (13:37)
[2018-07-24] MEDS ORDERED: diphenhydrAMINE 50 MG/ML SDV IVPUSH ONE (13:37)
[2018-07-24] MEDS ORDERED: Metoclopramide 10 MG/2 ML SDV IVPUSH ONE (13:37)
[2018-07-24] MEDS ORDERED: Sodium Chloride 0.9% 1,000 ML IV SCH (13:45)
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
== END 2018-07-24 15:12 | disposition home or self-care (01) ==
LOC: JD.ED 12:48
DX: G44.209 Tension-type headache, unspecified, not intractable (principal); Z90.49 Acquired absence of other specified parts of digestive tract; Z98.51 Tubal ligation status; Z88.8 Allergy status to other drugs, medicaments and biological substances
CPT/HCPCS: 96361; 96374; 96375; 99283; J1200; J1885; J2765; J7040; 99284

== ENCOUNTER 2018-10-07 14:19 | Emergency (ER) | payer OTHER ==
[2018-10-07] MEDS ORDERED: Ibuprofen 800 MG Tab PO ONE (14:32)
[2018-10-07] MEDS ORDERED: Silver Sulfadiazine 1% Crm 400 GM Jar TOP ONE (14:33)
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
[2018-10-07 14:55] VITALS: BP 169/105
== END 2018-10-07 15:15 | disposition home or self-care (01) ==
LOC: JD.ED 14:19
DX: T22.231A Burn of second degree of right upper arm, initial encounter (principal); T22.232A Burn of second degree of left upper arm, initial encounter; Z88.6 Allergy status to analgesic agent; Z88.5 Allergy status to narcotic agent; Z88.8 Allergy status to other drugs, medicaments and biological substances; X19.XXXA Contact with other heat and hot substances, initial encounter; Y99.0 Civilian activity done for income or pay
CPT/HCPCS: 16020; 99283; A9270; 99282

== ENCOUNTER 2022-07-06 05:32 | Emergency (ER) | payer SELFPAY ==
[2022-07-06 05:43] VITALS: BP 162/107; PULSE 91
[2022-07-06 06:32] LABS: INFLUENZA A NAA NEGATIVE (NEGATIVE)
[2022-07-06 06:46] LABS: CORONAVIRUS COVID-19 NAA POSITIVE (NEGATIVE)
== END 2022-07-06 07:18 | disposition home or self-care (01) ==
LOC: JD.ED 05:32
DX: U07.1 COVID-19 (principal); Z88.6 Allergy status to analgesic agent; Z90.49 Acquired absence of other specified parts of digestive tract
CPT/HCPCS: 0240U; 99284; 99283

== ENCOUNTER 2022-08-25 19:09 | Emergency (ER) | payer SELFPAY ==
[2022-08-25] MEDS ORDERED: Sodium Chloride 0.9% 1,000 ML IV ONE (19:33)
[2022-08-25] MEDS ORDERED: Ketorolac 30 MG/ML SDV IVPUSH ONE (19:33)
[2022-08-25 19:50] LABS: BASOPHILS ABSOLUTE AUTO 0.03 K/mm3 (0.01-0.08); BASOPHILS PERCENT AUTO 0.3 % (0.1-1.2); EOSINOPHILS ABSOLUTE AUTO 0.07 K/mm3 (0.04-0.36); EOSINOPHILS PERCENT AUTO 0.7 (0.7-5.8); HEMATOCRIT 38.5 % (34.1-44.9); HEMOGLOBIN 13.1 gm/dl (11.2-15.7); IMMATURE GRAN ABSOLUTE AUTO 0.01 K/mm3 (0.00-0.10); IMMATURE GRAN PERCENT AUTO 0.1 % (<=1.0); LYMPHOCYTES ABSOLUTE AUTO 2.09 K/mm3 (1.18-3.74); LYMPHOCYTES PERCENT AUTO 20.8 % (19.3-51.7); MEAN CORPUSCULAR HEMOGLOBIN 27.6 pg (25.6-32.2); MEAN CORPUSCULAR VOLUME 81.2 fl (79.4-94.8); MEAN PLATELET VOLUME 9.5 fl (9.4-12.3); MONOCYTES ABSOLUTE AUTO 0.77 K/mm3 (0.24-0.36); MONOCYTES PERCENT AUTO 7.7 % (4.7-12.5); NEUTROPHILS ABSOLUTE AUTO 7.08 K/mm3 (1.56-6.13); NEUTROPHILS PERCENT AUTO 70.4 % (34.0-71.1); PLATELET COUNT,PLT 459 K/mm3 (182-369); RED BLOOD CELL COUNT 4.74 M/mm3 (3.98-5.22); WHITE BLOOD CELL COUNT,WBC 10.05 K/mm3 (3.98-10.04)
[2022-08-25 20:09] LABS: INR 1.08; PROTHROMBIN TIME 11.5 SECONDS (9.7-12.0)
[2022-08-25 20:14] LABS: ALANINE AMINOTRANSFERASE,ALT 25 U/L (14-59); ALKALINE PHOSPHATASE 66 U/L (46-116); ANION GAP 12.5 (5-15); ASPARTATE AMNIOTRANSFERASE,AST 18 U/L (15-37); BILIRUBIN TOTAL 0.4 mg/dL (0.2-1.0); BLOOD UREA NITROGEN,BUN 18 mg/dL (7-18); CALCIUM 9.5 mg/dL (8.5-10.1); CARBON DIOXIDE,CO2 27 mEq/L (21-32); CHLORIDE,CL 102 mEq/L (98-107); CREATININE 0.9 mg/dL (0.55-1.02); ESTIMATED GFR 86 mL/min (>60); GLUCOSE RANDOM 83 mg/dL (70-99); LIPASE 58 U/L (73-393); POTASSIUM,K 3.5 mEq/L (3.5-5.1); PROTEIN TOTAL,TP 8.1 g/dl (6.4-8.2); SODIUM,NA 138 mEq/L (136-145); TROPONIN I HIGH SENSITIVITY < 4 pg/mL (<=51)
[2022-08-25] MEDS ORDERED: Iopamidol 612 MG/ML 100 ML Bottle IVPUSH ONE (20:18)
[2022-08-25] MEDS ORDERED: Sodium Chloride 0.9% 10 ML Syringe FLUSH PRN (20:18)
[2022-08-25 21:11] LABS: APPEARANCE,URINE CLEAR (Clear); BILIRUBIN,URINE NEGATIVE (Negative); COLOR,URINE YELLOW (Yellow); GLUCOSE,URINE NEGATIVE (Negative); KETONES,URINE TRACE (Negative); LEUKOCYTE ESTERASE,URINE NEGATIVE (Negative); NITRITE,URINE NEGATIVE (Negative); OCCULT BLOOD,URINE NEGATIVE (Negative); PROTEIN,URINE NEGATIVE (Negative); UROBILINOGEN,URINE 0.2 (0.2-1.0)
[2022-08-25 21:23] LABS: BACTERIA,URINE FEW /hpf (FEW); MUCUS,URINE MODERATE /hpf (FEW); RBC,URINE 0-5 /hpf (0-5); WBC,URINE 0-5 /hpf (0-5)
[2022-08-25 22:01] VITALS: BP 163/104; PULSE 81
== END 2022-08-25 22:00 | disposition home or self-care (01) ==
LOC: JD.ED 19:09
DX: R10.13 Epigastric pain (principal); J45.909 Unspecified asthma, uncomplicated; Z79.899 Other long term (current) drug therapy; Z88.8 Allergy status to other drugs, medicaments and biological substances
CPT/HCPCS: 36415; 74177; 80053; 81001; 83690; 84484; 85025; 85610; 93005; 96361; 96374; 99284; J1885; J3490; J7030; Q9967; 93010

== ENCOUNTER 2022-11-09 07:21 | Emergency (ER) | payer BC ==
[2022-11-09] MEDS: Prochlorperazine 10 MG/2 ML SDV IVPUSH ONE (08:58)
[2022-11-09] MEDS: diphenhydrAMINE 50 MG/ML SDV IVPUSH ONE (08:58)
[2022-11-09] MEDS: Lactated Ringers 1,000 ML IV ONE (08:59)
[2022-11-09] MEDS: Metoclopramide 10 MG/2 ML SDV IVPUSH ONE (10:31)
[2022-11-09 13:05] VITALS: BP 129/79; PULSE 62
== END 2022-11-09 13:16 | disposition home or self-care (01) ==
LOC: JD.ED 07:21
DX: G43.909 Migraine, unspecified, not intractable, without status migrainosus (principal); J45.909 Unspecified asthma, uncomplicated; Z88.5 Allergy status to narcotic agent; Z88.8 Allergy status to other drugs, medicaments and biological substances
CPT/HCPCS: 70450; 70450-26; 96361; 96374; 96375; 99284; 99284-25; J0780; J1200; J2765; J7120

== ENCOUNTER 2022-12-20 00:14 | Emergency (ER) | payer BC ==
[2022-12-20] MEDS ORDERED: Amoxicillin/Clavulanate K 875-125 MG Tab PO ONE (00:55)
[2022-12-20 01:09] VITALS: BP 146/104; PULSE 75
== END 2022-12-20 01:08 | disposition home or self-care (01) ==
LOC: JD.ED 00:14
DX: K04.7 Periapical abscess without sinus (principal); Z88.6 Allergy status to analgesic agent; Z88.5 Allergy status to narcotic agent; Z88.1 Allergy status to other antibiotic agents
CPT/HCPCS: 99282; A9270; 99283

== ENCOUNTER 2024-01-03 11:35 | Emergency (ER) | payer SELFPAY ==
[2024-01-03 11:49] VITALS: PULSE 69
[2024-01-03 12:18] LABS: BASOPHILS PERCENT AUTO 0.3 % (0.0-1.0); EOSINOPHILS ABSOLUTE AUTO 0.2 K/mm3 (0.0-0.4); EOSINOPHILS PERCENT AUTO 1.9 % (0.0-6.0); HEMATOCRIT 31.1 % (37.0-47.0); HEMOGLOBIN 10.4 gm/dl (12.0-16.0); IMMATURE GRAN ABSOLUTE AUTO 0.04 K/mm3 (0.00-0.05); IMMATURE GRAN PERCENT AUTO 0.4 % (0.0-0.4); LYMPHOCYTES ABSOLUTE AUTO 2.2 K/mm3 (1.0-4.8); LYMPHOCYTES PERCENT AUTO 21.3 % (24.0-44.0); MEAN CORPUSCULAR HEMOGLOBIN 26.2 pg (28.0-32.0); MEAN CORPUSCULAR HGB CONC 33.4 g/dl (32.0-36.0); MEAN CORPUSCULAR VOLUME 78.3 fl (83.0-99.0); MEAN PLATELET VOLUME 9.1 fl (9.4-12.3); MONOCYTES ABSOLUTE AUTO 0.7 K/mm3 (0.0-0.8); NEUTROPHILS ABSOLUTE AUTO 7.1 K/mm3 (1.8-7.7); NEUTROPHILS PERCENT AUTO 69.1 % (41.0-71.0); PLATELET COUNT,PLT 422 K/mm3 (150-400); RED BLOOD CELL COUNT 3.97 M/mm3 (4.10-5.30)
[2024-01-03 12:33] LABS: INR 1.03; PROTHROMBIN TIME 10.9 SECONDS (9.7-12.0)
[2024-01-03 12:39] VITALS: BP 186/120
[2024-01-03] MEDS: Losartan 100 MG Tab PO STA (12:39)
[2024-01-03 12:42] LABS: APPEARANCE,URINE CLEAR (Clear); BILIRUBIN,URINE NEGATIVE (Negative); COLOR,URINE YELLOW (Yellow); GLUCOSE,URINE NEGATIVE (Negative); KETONES,URINE NEGATIVE (Negative); LEUKOCYTE ESTERASE,URINE NEGATIVE (Negative); NITRITE,URINE NEGATIVE (Negative); OCCULT BLOOD,URINE 3+ (Negative); PH,URINE 6.5 (5.0-8.0); PROTEIN,URINE NEGATIVE (Negative); UROBILINOGEN,URINE 0.2 (0.2-1.0)
[2024-01-03 12:49] LABS: ALANINE AMINOTRANSFERASE,ALT 18 U/L (14-59); ALBUMIN 3.5 g/dl (3.4-5.0); ALKALINE PHOSPHATASE 64 U/L (46-116); ANION GAP 13.4 (5-15); ASPARTATE AMNIOTRANSFERASE,AST 12 U/L (15-37); BILIRUBIN TOTAL 0.2 mg/dL (0.2-1.0); BLOOD UREA NITROGEN,BUN 15 mg/dL (7-18); BUN/CREATININE RATIO 16.7 (14-18); CALCIUM 9.3 mg/dL (8.5-10.1); CARBON DIOXIDE,CO2 27 mEq/L (21-32); CHLORIDE,CL 104 mEq/L (98-107); CREATININE 0.9 mg/dL (0.55-1.02); EST CRCL DRUG DOSING (CG) 68.35 mL/min; ESTIMATED GFR 85 mL/min (>60); GLUCOSE RANDOM 103 mg/dL (70-99); HCG QUANTITATIVE < 1.0 mIU/mL; POTASSIUM,K 3.4 mEq/L (3.5-5.1); PROTEIN TOTAL,TP 7.2 g/dl (6.4-8.2); SODIUM,NA 141 mEq/L (136-145)
[2024-01-03 12:50] LABS: TSH 1.161 uIU/mL (0.358-3.74)
[2024-01-03 13:15] LABS: BACTERIA,URINE FEW /hpf (FEW); EPITHELIAL CELLS,URINE 0-5 /hpf (0-5); MUCUS,URINE MODERATE /hpf (FEW); RBC,URINE >100 /hpf (0-5); WBC,URINE 0-5 /hpf (0-5)
== END 2024-01-03 14:42 | disposition home or self-care (01) ==
LOC: JD.ED 11:35
DX: N93.9 Abnormal uterine and vaginal bleeding, unspecified (principal); D25.0 Submucous leiomyoma of uterus; N83.202 Unspecified ovarian cyst, left side; I10 Essential (primary) hypertension; J45.909 Unspecified asthma, uncomplicated; Z86.16 Personal history of COVID-19; Z90.49 Acquired absence of other specified parts of digestive tract; Z88.5 Allergy status to narcotic agent; Z88.8 Allergy status to other drugs, medicaments and biological substances; Z79.899 Other long term (current) drug therapy
CPT/HCPCS: 36415; 76830; 80053; 81001; 84443; 84702; 85025; 85610; 86850; 86900; 86901; 99284; A9270

== ENCOUNTER 2024-08-18 07:37 | Emergency (ER) | payer SELFPAY ==
[2024-08-18] MEDS: hydrALAZINE 20 MG/ML SDV IVPUSH ONE (08:11)
[2024-08-18] MEDS: Sodium Chloride 0.9% 10 ML Syringe FLUSH PRN (08:13)
[2024-08-18 08:14] LABS: BASOPHILS ABSOLUTE AUTO 0.0 K/mm3 (0.0-0.2); BASOPHILS PERCENT AUTO 0.2 % (0.0-1.0); EOSINOPHILS ABSOLUTE AUTO 0.2 K/mm3 (0.0-0.4); EOSINOPHILS PERCENT AUTO 1.2 % (0.0-6.0); IMMATURE GRAN ABSOLUTE AUTO 0.06 K/mm3 (0.00-0.05); IMMATURE GRAN PERCENT AUTO 0.4 % (0.0-0.4); LYMPHOCYTES ABSOLUTE AUTO 2.5 K/mm3 (1.0-4.8); LYMPHOCYTES PERCENT AUTO 17.2 % (24.0-44.0); MEAN PLATELET VOLUME 9.0 fl (9.4-12.3); MONOCYTES ABSOLUTE AUTO 1.0 K/mm3 (0.0-0.8); MONOCYTES PERCENT AUTO 7.0 % (0.0-8.0); NEUTROPHILS ABSOLUTE AUTO 10.9 K/mm3 (1.8-7.7); NEUTROPHILS PERCENT AUTO 74.0 % (41.0-71.0); NRBC ABSOLUTE 0.00 (0.00-0.02); NRBC PERCENT 0.0 % (0.0-0.2); PLATELET COUNT,PLT 416 K/mm3 (150-400); RED BLOOD CELL COUNT 4.84 M/mm3 (4.10-5.30); WHITE BLOOD CELL COUNT,WBC 14.77 K/mm3 (3.9-11.3)
[2024-08-18] MEDS: Ondansetron 4 MG/2 ML SDV IVPUSH ONE (08:24)
[2024-08-18 08:47] LABS: A/G RATIO 1.0 (1-2); ALANINE AMINOTRANSFERASE,ALT 27.0 U/L (14-59); ASPARTATE AMNIOTRANSFERASE,AST 19.0 U/L (15-37); BILIRUBIN TOTAL 0.7 mg/dL (0.2-1.0); BLOOD UREA NITROGEN,BUN 10.0 mg/dL (7-18); CARBON DIOXIDE,CO2 24.0 mEq/L (21-32); CHLORIDE,CL 103.0 mEq/L (98-107); CREATININE 0.7 mg/dL (0.55-1.02); EST CRCL DRUG DOSING (CG) 87.03 mL/min; ESTIMATED GFR 114.0 mL/min (>60); GLUCOSE RANDOM 109.0 mg/dL (70-99); POTASSIUM,K 3.4 mEq/L (3.5-5.1); PROTEIN TOTAL,TP 8.0 g/dl (6.4-8.2); SODIUM,NA 139.0 mEq/L (136-145); TSH 0.7 uIU/mL (0.358-3.74)
[2024-08-18 08:52] LABS: APPEARANCE,URINE CLEAR (Clear); GLUCOSE,URINE NEGATIVE (Negative); OCCULT BLOOD,URINE TRACE-INTACT (Negative)
[2024-08-18 09:08] LABS: EPITHELIAL CELLS,URINE 0-5 /hpf (0-5)
[2024-08-18] MEDS: Labetalol 100 MG/20 ML MDV IVPUSH ONE (10:03)
[2024-08-18] MEDS: Prochlorperazine 10 MG/2 ML SDV IVPUSH ONE (11:34)
[2024-08-18 19:54] VITALS: BP 138/77; PULSE 72
== END 2024-08-18 14:10 | disposition home or self-care (01) ==
LOC: JD.ED 07:37
DX: I16.0 Hypertensive urgency (principal); R51.9 Headache, unspecified; J45.909 Unspecified asthma, uncomplicated; I10 Essential (primary) hypertension; Z86.16 Personal history of COVID-19; Z79.899 Other long term (current) drug therapy; Z88.6 Allergy status to analgesic agent; Z88.5 Allergy status to narcotic agent; Z88.8 Allergy status to other drugs, medicaments and biological substances
CPT/HCPCS: 36415; 70450; 80053; 81001; 83735; 84443; 84703; 85025; 96374; 96375; 99284; J0360; J0780; J1920; J2270; J2405; J7030